=== PATIENT | male | born 1975 | race Caucasian/White ===

== ENCOUNTER 2017-05-04 12:49 | Emergency (ER) | payer SELFPAY ==
[2017-05-04 13:03] VITALS: BMI 38.2
--- NOTE | 2017-05-04 13:06 | PDOC ---
History of Present Illness <Todd Colón - Last Filed: 05/04/17 16:40> - General History Source: Patient Exam Limitations: No Limitations - History of Present Illness Initial Comments: 05/04/17 14:26 The patient is a 41-year-old male with no significant past medical history, and presents to the emergency department with pain, swelling, and redness to the left foot for 4 days. He reports the pain started at the heel, and he tried to use an insert for relief. He reports the pain and a pressure-like sensation traveled to the dorsum of the foot afterwards. He reports diffuse redness and swelling throughout the left foot. He denies any cuts or wounds on the foot. The patient is concerned it may be related to diabetes as he has an extensive family history of diabetes. Patient states he has not seen a doctor in 20 years. The patient denies chest pain, shortness of breath, headache and dizziness. The patient denies fever, chills, nausea, vomit, diarrhea and constipation. The patient denies dysuria, frequency, urgency and hematuria. Allergies: NKDA Past Surgical History: None reported Social History: current everyday smoker (5 cigarettes per day), denies ETOH or drug use) Family PMHx: diabetes <Breann Choudhury - Last Filed: 05/04/17 16:46> - General Chief Complaint: Redness To Affected Area Stated Complaint: SWOLLEN LT FOOT Time Seen by Provider: 05/04/17 13:04 Past History - Past Medical History Other medical history: NONE - Psycho/Social/Smoking Cessation Hx Anxiety: No Suicidal Ideation: No Smoking History: Current every day smoker Number of Cigarettes Smoked Daily: 5 Information on smoking cessation initiated: Yes 'Breaking Loose' booklet given: 05/04/17 Hx Alcohol Use: No Drug/Substance Use Hx: No Substance Use Type: None <Todd Colón - Last Filed: 05/04/17 16:40> <Breann Choudhury - Last Filed: 05/04/17 16:46> - Past Medical History Allergies/Adverse Reactions: Allergies Allergy/AdvReac Type Severity Reaction Status Date / Time No Known Allergies Allergy Verified 05/04/17 12:58 Home Medications: Ambulatory Orders Sulfamethoxazole/Trimethoprim [Bactrim Ds Tablet] 1 each PO BID #20 tablet 05/04 Review of Systems - Review of Systems Able to Perform ROS?: Yes Comments:: 05/04/17 14:26 GENERAL/CONSTITUTIONAL: No fever or chills. No weakness. HEAD, EYES, EARS, NOSE AND THROAT: No change in vision. No ear pain or discharge. No sore throat. CARDIOVASCULAR: No chest pain or shortness of breath. RESPIRATORY: No cough, wheezing, or hemoptysis. GASTROINTESTINAL: No nausea, vomiting, diarrhea or constipation. GENITOURINARY: No dysuria, frequency, or change in urination. MUSCULOSKELETAL: No joint swelling or pain. No neck or back pain. SKIN: (+) Swelling and redness to the left foot. No rash NEUROLOGIC: No headache, vertigo, loss of consciousness, or change in strength/ sensation. ENDOCRINE: No increased thirst. No abnormal weight change. HEMATOLOGIC/LYMPHATIC: No anemia, easy bleeding, or history of blood clots. ALLERGIC/IMMUNOLOGIC: No hives or skin allergy. <Breann Choudhury - Last Filed: 05/04/17 16:46> *Physical Exam - Vital Signs Last Vital Signs Temp Pulse Resp BP Pulse Ox 98.7 F 94 H 20 145/93 99 05/04/17 12:53 05/04/17 12:53 05/04/17 12:53 05/04/17 12:53 05/04/17 12:53 <Todd Colón - Last Filed: 05/04/17 16:40> - Vital Signs Last Vital Signs Temp Pulse Resp BP Pulse Ox 98.7 F 94 H 20 145/93 99 05/04/17 12:53 05/04/17 12:53 05/04/17 12:53 05/04/17 12:53 05/04/17 12:53 - Physical Exam Comments: 05/04/17 14:43 GENERAL: Awake, alert, and fully oriented, in no acute distress HEAD: No signs of trauma EYES: PERRLA, EOMI, sclera anicteric, conjunctiva clear ENT: Auricles normal inspection, hearing grossly normal, nares patent, oropharynx clear without exudates. Moist mucosa NECK: Normal ROM, supple, no lymphadenopathy, JVD, or masses LUNGS: Breath sounds equal, clear to auscultation bilaterally. No wheezes, and no crackles HEART: Regular rate and rhythm, normal S1 and S2, no murmurs, rubs or gallops ABDOMEN: Soft, nontender, normoactive bowel sounds. No guarding, no rebound. No masses EXTREMITIES: (+) Onychomycosis on both feet and all toenails. (+) Swelling from dorsum of left foot up to the distal 3rd of the tibia-fibula region, warm and slightly red compared to right foot. Good pulses. Normal range of motion. No clubbing or cyanosis. No cords. NEUROLOGICAL: Cranial nerves II through XII grossly intact. Normal speech. SKIN: Warm, Dry, normal turgor, no rashes or lesions noted. <Breann Choudhury - Last Filed: 05/04/17 16:46> ED Treatment Course - LABORATORY CBC & Chemistry Diagram: 05/04/17 15:23 05/04/17 15:23 <Todd Colón - Last Filed: 05/04/17 16:40> - LABORATORY CBC & Chemistry Diagram: 05/04/17 15:23 05/04/17 15:23 - ADDITIONAL ORDERS Additional order review: Laboratory Results 05/04/17 13:23 POC Glucometer [id number] 05/04/17 13:23 POC Glucometer [id number] - RADIOLOGY Radiograph Interpretation: 05/04/17 16:45 DUPLEX VASCULAR US - 1 LEG IMPRESSION: No evidence of acute DVT Reported by: Dr. Prakash Miranda Reviewed by: Dr. Todd Colón <Breann Choudhury - Last Filed: 05/04/17 16:46> *DC/Admit/Observation/Transfer - Discharge Dispostion Admit: No - Attestations Physician Attestion: 05/04/17 13:06 I, Dr. Todd Colnó, attest that this document has been prepared under my direction and personally reviewed by me in its entirety. I further attest, that it accurately reflects all work, treatment, procedures and medical decision -making performed by me. <Todd Colón - Last Filed: 05/04/17 16:40> - Attestations Scribe Attestion: 05/04/17 14:27 Documentation prepared by Breann Choudhury, acting as medical affairs manager for Todd Colón DO. <Breann Choudhury - Last Filed: 05/04/17 16:46> Diagnosis at time of Disposition: OM (onychomycosis), Cellulitis of left leg - Discharge Dispostion Disposition: HOME Condition at time of disposition: Improved - Prescriptions Prescriptions: Sulfamethoxazole/Trimethoprim [Bactrim Ds Tablet] 1 each PO BID #20 tablet - Patient Instructions Printed Discharge Instructions: DI for Cellulitis -- Adult Additional Instructions: Cory- So sorry that you are going through this right now..... you have to see a flight physician and get those toenails taken care of. Meanwhile, take the Bactrim DS twice a day every day. Wear only white cotton socks. Keep the foot elevated as much as possible and soak in the bathtub with liquid dial antibacfterial soap at least twice a day.... Best- Dr. Todd Colón PS..... NO BLOOD CLOT In the leg. just an infection
[2017-05-04] MEDS ORDERED: SODIUM CHLORIDE 1,000 ML IV STA (14:10)
[2017-05-04] MEDS ORDERED: ceFAZolin 2 GRAM PREMIX BAG IVPB ONE (14:11)
[2017-05-04 15:34] LABS: BASOPHIL 0.4 % (0-2.0); EOSINOPHIL 0.6 % (0-4.5); MCH 28.9 pg (25.7-33.7); MCHC 34.5 g/dl (32.0-35.9); MEAN CELL VOLUME 83.9 fl (80-96); NEUTROPHILS 74.4 % (42.8-82.8); PLATELET COUNT 181 K/MM3 (134-434); RDW 14.1 % (11.9-15.9); WHITE BLOOD COUNT 17.8 K/mm3 (4.0-10.0)
[2017-05-04 15:49] LABS: ALBUMIN 3.3 g/dl (3.4-5.0); ALK PHOS 91 U/L (45-117); ANION GAP 8 (8-16); BILIRUBIN,TOTAL 0.6 mg/dL (0.2-1.0); CALCIUM 8.6 mg/dL (8.5-10.1); CO2 28 mmol/L (21-32); GLUCOSE,RANDOM 95 mg/dL (74-106); SGOT/AST 19 U/L (15-37); SGPT/ALT 33 U/L (12-78); TOT PROT 7.2 g/dl (6.4-8.2)
[2017-05-04] MEDS ORDERED: CEFAZOLIN (PRE-DOCKED) 100 ML IVPB ONE (16:21)
[2017-05-04 17:57] VITALS: BP 147/74; PULSE 80; TEMP 98
== END 2017-05-04 17:57 | disposition home or self-care (01) ==
LOC: JER 12:49
DX: L03.116 Cellulitis of left lower limb (principal); M79.89 Other specified soft tissue disorders; B35.1 Tinea unguium
CPT/HCPCS: 36415; 80053; 85025; 93971-TC; 99283-25